=== PATIENT | female | born 1990 | race Caucasian/White ===

== ENCOUNTER 2017-06-20 11:56 | Outpatient (CLI) | payer BC ==
[~2017-06-20] VITALS: Ht 175.3 cm; Wt 87.5 kg
[2017-06-20 12:20] VITALS: BP 119/72
[2017-06-20] MEDS ORDERED: PRENATAL TABLE1 EAC3 PO (12:24)
[2017-06-20] MEDS ORDERED: ATARAX,VISTARIL25 MG PO (12:43)
[2017-06-20 13:38] LABS: SOURCE URINE
[2017-06-20 13:57] LABS: APPEARANCE CLOUDY ((CLEAR)); BILIRUBIN NEGATIVE; BLOOD NEGATIVE; COLOR AMBER ((YELLOW)); GLUCOSE (STRIP) NEGATIVE; KETONES NEGATIVE; LEUKOCYTES MODERATE; NITRITE NEGATIVE; PROTEIN (STRIP) 30; SPECIFIC GRAVITY 1.016 (1.000-1.030); UROBILINOGEN 0.2 MG/DL (0.2-1.0)
[2017-06-20 14:22] LABS: BACTERIA 1+ /HPF; EPITHELIAL CELLS 1+ /HPF; MUCUS NONE SEEN /LPF; RED BLOOD CELLS 0-5 /HPF (0-5); UCUL ADDED? YES; WHITE BLOOD CELLS 20-30 /HPF (0-5)
[2017-06-20 21:08] LABS: CANDIDA DNA PROBE POSITIVE; GARDNERELLA DNA PROBE POSITIVE; TRICHOMONAS DNA PROBE NEGATIVE
[2017-06-21 12:51] LABS: CHLAMYDIA TRACHOMATIS NEGATIVE; NEISSERIA GONORRHOEAE NEGATIVE
== END 2017-06-20 15:10 | disposition home or self-care (01) ==
LOC: LDRP-OP → 2WEST 11:57 → LDRP-OP 09-12 14:05
PROVIDERS: Advanced Practice Midwife; Obstetrics & Gynecology
DX: O23.593 Infection of other part of genital tract in pregnancy, third trimester (principal); N76.0 Acute vaginitis; O99.333 Smoking (tobacco) complicating pregnancy, third trimester; Z3A.33 33 weeks gestation of pregnancy
CPT/HCPCS: 59025; 81003; 82731; 87081; 87086; 87480; 87491; 87510; 87591; 87660; G0378

== ENCOUNTER → 2017-07-14 | Outpatient (CLI) | payer BC ==
[~2017-07-14] VITALS: Ht 175.3 cm; Wt 90.0 kg
[~2017-07-14] MED LIST: ATARAX,VISTARIL25 MG PO; PRENATAL TABLE1 EAC3 PO; PROMETHAZINE HC25 M1 PO; TYLENOL REGULA325 MG PO
[2017-07-14 09:54] VITALS: BP 136/77
== END | disposition home or self-care (01) ==
LOC: IVINF 07-12 10:00
DX: O09.899 Supervision of other high risk pregnancies, unspecified trimester (principal); Z3A.00 Weeks of gestation of pregnancy not specified; Z67.91 Unspecified blood type, Rh negative
CPT/HCPCS: 96372; J2790

== ENCOUNTER 2017-08-04 07:56 | Inpatient (IN) | payer BC ==
[2017-08-04] VITALS (24 sets, daily range): BP systolic 98–141; BP diastolic 57–85
[~2017-08-04] VITALS: Ht 175.3 cm; Wt 94.0 kg
[2017-08-04] MEDS ORDERED: VISTARIL50 MG PO (08:35)
[2017-08-04] MEDS ORDERED: BENADRYL ALLERG25 MG PO (08:36)
[2017-08-04 10:02] LABS: AMPHETAMINE NEGATIVE (500 ng/mL); BARBITURATES NEGATIVE (200 ng/mL); BENZODIAZEPINES NEGATIVE (150 ng/mL); BUPRENORPHINE NEGATIVE (10 ng/mL); COCAINE NEGATIVE (150 ng/mL); METHADONE NEGATIVE (200 ng/mL); METHAMPHETAMINE NEGATIVE (500 ng/mL); OPIATES (MORPHINE) NEGATIVE (100 ng/mL); OXYCODONE NEGATIVE (100 ng/mL); PHENCYCLIDINE NEGATIVE (25 ng/mL); PROPOXYPHENE NEGATIVE (300 ng/mL); THC CANNABINOIDS PRESUMPTIVE POSITIVE (50 ng/mL); TRICYCLIC ANTIDEPRESSANTS NEGATIVE (300 ng/mL)
[2017-08-04 11:32] LABS: BASOPHIL (%) 0.1 % (0-1); EOSINOPHIL (%) 0.5 % (0-5); EOSINOPHIL COUNT 0.1 K/uL (0-0.3); HEMATOCRIT 35.7 % (36.0-46.0); HEMOGLOBIN 11.7 G/DL (11.9-15.5); IMMATURE GRANULOCYTE (%) 0.7 % (0.0-0.7); LYMPHOCYTE (%) 11.4 % (15-42); LYMPHOCYTE COUNT 1.5 K/uL (1.0-2.8); MCH 28.1 PG (29.0-34.0); MCHC 32.8 G/DL (30.0-36.0); MCV 85.6 FL (83-99); MONOCYTE (%) 5.4 % (3-12); MONOCYTE COUNT 0.7 K/uL (0-0.8); NEUTROPHIL (%) 81.9 % (45-76); PLATELET COUNT 315 K/uL (156-360); RBC DIS.WIDTH-CV 13.5 % (11.8-14.6); RBC DIS.WIDTH-SD 42.3 % (39-53); RED BLOOD COUNT 4.17 M/uL (3.80-5.20); WHITE BLOOD COUNT 13.4 K/uL (4.1-10.2)
[2017-08-05] VITALS (22 sets, daily range): BP systolic 86–129; BP diastolic 51–76
[2017-08-06 07:17] LABS: BASOPHIL (%) 0.2 % (0-1); EOSINOPHIL (%) 0.7 % (0-5); EOSINOPHIL COUNT 0.1 K/uL (0-0.3); HEMATOCRIT 29.5 % (36.0-46.0); IMMATURE GRANULOCYTE (%) 0.6 % (0.0-0.7); LYMPHOCYTE (%) 10.8 % (15-42); LYMPHOCYTE COUNT 1.7 K/uL (1.0-2.8); MCH 27.6 PG (29.0-34.0); MCHC 32.2 G/DL (30.0-36.0); MCV 85.8 FL (83-99); MONOCYTE (%) 7.9 % (3-12); MONOCYTE COUNT 1.2 K/uL (0-0.8); NEUTROPHIL (%) 79.8 % (45-76); NEUTROPHIL COUNT 12.5 K/uL (1.8-6.4); RBC DIS.WIDTH-CV 13.8 % (11.8-14.6); RBC DIS.WIDTH-SD 42.7 % (39-53); RED BLOOD COUNT 3.44 M/uL (3.80-5.20); WHITE BLOOD COUNT 15.6 K/uL (4.1-10.2)
[2017-08-06 07:23] LABS: HEMOGLOBIN 9.5 G/DL (11.9-15.5)
[2017-08-06 07:38] LABS: PLAT.SUFFICIENCY ADEQUATE
[2017-08-06 07:45] LABS: PLATELET COUNT ND K/uL (156-360)
[2017-08-06 07:56] VITALS: BP 115/76
[2017-08-06 14:38] VITALS: BP 116/76
[2017-08-07 00:04] VITALS: BP 126/77
[2017-08-07 08:34] VITALS: BP 122/71
[2017-08-07] MEDS ORDERED: IBUPROFEN800 MG PO (13:20)
[2017-08-07] MEDS ORDERED: CHROMAGEN,1 CAPSULE PO (13:21)
== END 2017-08-07 14:10 | disposition home or self-care (01) | DRG 775 ==
LOC: LDRP-OP → 2WEST 07:57 → LDRP-OP 13:16 → 2WEST 08-05 12:23 → LDRP-OP 09-12 18:02
PROVIDERS: Advanced Practice Midwife
DX: O71.4 Obstetric high vaginal laceration alone (principal); O76 Abnormality in fetal heart rate and rhythm complicating labor and delivery; O99.02 Anemia complicating childbirth; D62 Acute posthemorrhagic anemia; Z3A.40 40 weeks gestation of pregnancy; Z37.0 Single live birth; O99.343 Other mental disorders complicating pregnancy, third trimester; O99.333 Smoking (tobacco) complicating pregnancy, third trimester; F17.210 Nicotine dependence, cigarettes, uncomplicated; O99.323 Drug use complicating pregnancy, third trimester; F12.90 Cannabis use, unspecified, uncomplicated
CPT/HCPCS: 84999; 85025; C1755; G0378; J0595; J2405; J3010; J7120